=== PATIENT | male | born 1985 | race Caucasian/White ===

== ENCOUNTER 2018-07-13 15:27 | Observation (INO) | payer MEDICAID, OTHER ==
[2018-07-13] VITALS (7 sets, daily range): BP systolic 105–127; BP diastolic 67–94
[~2018-07-13] VITALS: Ht 182.9 cm; Wt 75.3 kg
[~2018-07-13 15:27] MED LIST: NAPR-243 PO; PRM25T PO; SULF1TAB38 PO; TRM50T PO
--- OUTSIDE RECORDS SUMMARY | 2018-07-13 15:32 | XMS REPORT ---
Author Author CANDACE TUCKER [facility] Address [address] [place] [address] Care Team Providers Care Cook Helper Meat Name Role Phone CANDACE TUCKER Unavailable PROBLEMS Unknown Problems ALLERGIES No Information ENCOUNTERS Encounter Location Date Diagnosis [facility] [address] [facility] [id number] [address] Jun, [facility] [address] [facility] [id number] [place] [address] Jun, IMMUNIZATIONS No Known Immunizations SOCIAL HISTORY Never Assessed REASON FOR VISIT Requests return call PLAN OF CARE VITAL SIGNS MEDICATIONS Unknown Medications RESULTS No Results PROCEDURES No Known procedures INSTRUCTIONS MEDICATIONS ADMINISTERED No Known Medications
--- NOTE | 2018-07-13 15:44 | ED Abdominal Pain ---
General Chief Complaint: Abdominal/GI Problems Stated Complaint: ABD PAIN Nursing Triage Note: PATIENT HERE WITH COMPLAINTS OF ABDOMINAL PAIN. Sepsis Screen: No Definite Risk Source of Information: Patient Exam Limitations: No Limitations History of Present Illness Date Seen by Provider: Jul 13, 2018 Time Seen by Provider: 15:42 Initial Comments To ER with reports of midline upper abdominal pain and he first noticed upon awakening this morning. It was mild at first and has progressed throughout the day. No nausea or vomiting. No fevers or chills. No diarrhea or constipation, only pain. He does state that he drinks alcohol about every other day on a regular basis and on those days he drinks anywhere from 6-10 beers. He did drink last night. The pain has begun to radiate to the left shoulder. Timing/Duration: 12-24 Hours Severity/Quality: Severe Location: Epigastric Radiation: No Radiation Activities at Onset: None Associated Symptoms: No Back Pain, No Fever/Chills, No Nausea/Vomiting Allergies and Home Medications Allergies Coded Allergies: No Known Drug Allergies (Unverified , 03/13/11) Home Medications Naproxen 500 Mg Tablet, 1 EACH PO TID PRN FOR PAIN Prescribed by: TYLER LIM on 09/24/11904 Tramadol Hcl 50 Mg Tab, 50 MG PO Q4-6HOURS PRN FOR PAIN Prescribed by: TYLER LIM on 09/24/11904 Patient Home Medication List Home Medication List Reviewed: Yes Review of Systems Review of Systems Constitutional: see HPI; No chills, No dizziness, No fever EENTM: No Symptoms Reported Respiratory: No Symptoms Reported Cardiovascular: See HPI Gastrointestinal: See HPI, Abdominal Pain; Denies Constipated, Denies Diarrhea , Denies Nausea, Denies Vomiting Genitourinary: No Symptoms Reported Musculoskeletal: no symptoms reported Skin: no symptoms reported Psychiatric/Neurological: No Symptoms Reported Endocrine: No Symptoms Reported Past Coavebe-Cskbfi-Eoxkgg Hx Patient Social History Recent Foreign Travel: No Contact w/Someone Who Travel: No Recent Infectious Disease Expo: No Physical Exam Vital Signs Vital Signs - First Documented 07/13/18 15:35 Temp 97.8 Pulse 53 Resp 20 B/P (MAP) 181/121 (141) Pulse Ox 100 Capillary Refill : Less Than 3 Seconds Height/Weight/BMI Height: 6'0" Weight: 160lbs. 0oz. 72.349893wf; BMI Method:Stated General Appearance: WD/WN, no apparent distress HEENT: PERRL/EOMI, normal ENT inspection Neck: non-tender, full range of motion Respiratory: normal breath sounds, no respiratory distress, no accessory muscle use Cardiovascular: no murmur, bradycardia Gastrointestinal: normal bowel sounds, soft, tenderness, other (there is no abdominal ecchymosis or abrasions to suggest injury) Extremities: normal range of motion, non-tender Neurologic/Psychiatric: alert, normal mood/affect, oriented x 3 Skin: normal color, warm/dry Progress/Results/Core Measures Results/Orders Lab Results Laboratory Tests Test 07/13/18 15:45 07/13/18 15:50 Range/Units White Blood Count 11.3 H 4.3-11.0 10^3/uL Red Blood Count 4.48 4.35-5.85 10^6/uL Hemoglobin 13.9 13.3-17.7 G/DL Hematocrit 40 40-54 % Mean Corpuscular Volume 89 80-99 FL Mean Corpuscular Hemoglobin 31 25-34 PG Mean Corpuscular Hemoglobin Concent 35 32-36 G/DL Red Cell Distribution Width 12.7 10.0-14.5 % Platelet Count 252 130-400 10^3/uL Mean Platelet Volume 12.4 H 7.4-10.4 FL Neutrophils (%) (Auto) 70 42-75 % Lymphocytes (%) (Auto) 20 12-44 % Monocytes (%) (Auto) 8 0-12 % Eosinophils (%) (Auto) 1 0-10 % Basophils (%) (Auto) 1 0-10 % Neutrophils # (Auto) 8.0 H 1.8-7.8 X 10^3 Lymphocytes # (Auto) 2.3 1.0-4.0 X 10^3 Monocytes # (Auto) 0.9 0.0-1.0 X 10^3 Eosinophils # (Auto) 0.1 0.0-0.3 10^3/uL Basophils # (Auto) 0.1 0.0-0.1 10^3/uL Prothrombin Time 13.3 12.2-14.7 SEC INR Comment 1.0 0.8-1.4 Activated Partial Thromboplast Time 25 24-35 SEC Sodium Level 141 135-145 MMOL/L Potassium Level 3.6 3.6-5.0 MMOL/L Chloride Level 103 98-107 MMOL/L Carbon Dioxide Level 24 21-32 MMOL/L Anion Gap 14 5-14 MMOL/L Blood Urea Nitrogen 10 7-18 MG/DL Creatinine 1.03 0.60-1.30 MG/DL Estimat Glomerular Filtration Rate > 60 BUN/Creatinine Ratio 10 Glucose Level 124 H 70-105 MG/DL Calcium Level 9.3 8.5-10.1 MG/DL Corrected Calcium 8.9 8.5-10.1 MG/DL Total Bilirubin 0.6 0.1-1.0 MG/DL Aspartate Amino Transf (AST/SGOT) 30 5-34 U/L Alanine Aminotransferase (ALT/SGPT) 26 0-55 U/L Alkaline Phosphatase 68 40-136 U/L Total Protein 7.2 6.4-8.2 GM/DL Albumin 4.5 3.2-4.5 GM/DL Amylase Level 47 25-125 U/L Lipase 13 8-78 U/L Serum Alcohol 51 H <10 MG/DL Monoscreen NEGATIVE NEGATIVE Urine Color YELLOW Urine Clarity CLEAR Urine pH 5 5-9 Urine Specific Fenton 1.025 H 1.016-1.022 Urine Protein NEGATIVE NEGATIVE Urine Glucose (UA) NEGATIVE NEGATIVE Urine Ketones NEGATIVE NEGATIVE Urine Nitrite NEGATIVE NEGATIVE Urine Bilirubin NEGATIVE NEGATIVE Urine Urobilinogen NORMAL NORMAL MG/DL Urine Leukocyte Esterase NEGATIVE NEGATIVE Urine RBC (Auto) NEGATIVE NEGATIVE Urine RBC NONE /HPF Urine WBC 0-2 /HPF Urine Crystals NONE /LPF Urine Bacteria NEGATIVE /HPF Urine Casts NONE /LPF Urine Mucus SMALL H /LPF Urine Culture Indicated NO Urine Opiates Screen NEGATIVE NEGATIVE Urine Oxycodone Screen NEGATIVE NEGATIVE Urine Methadone Screen NEGATIVE NEGATIVE Urine Propoxyphene Screen NEGATIVE NEGATIVE Urine Barbiturates Screen NEGATIVE NEGATIVE Ur Tricyclic Antidepressants Screen NEGATIVE NEGATIVE Urine Phencyclidine Screen NEGATIVE NEGATIVE Urine Amphetamines Screen NEGATIVE NEGATIVE Urine Methamphetamines Screen NEGATIVE NEGATIVE Urine Benzodiazepines Screen NEGATIVE NEGATIVE Urine Cocaine Screen NEGATIVE NEGATIVE Urine Cannabinoids Screen POSITIVE H NEGATIVE My Orders Orders - LISA CORONADO APRN Lipase (07/13/18 15:41) Amylase (07/13/18 15:41) Alcohol (07/13/18 15:41) Ua Culture If Indicated (07/13/18 15:41) Iv Heplock-Insert (Order) (07/13/18 15:41) Drug Screen Stat (Urine) (07/13/18 15:41) Cbc With Automated Diff (07/13/18 15:41) Comprehensive Metabolic Panel (07/13/18 15:41) Ct Abdomen/Pelvis W (07/13/18 15:41) Fentanyl Injection (Sublimaze Injection (07/13/18 15:45) Lactated Ringers (Lr 1000 Ml Iv Solution (07/13/18 15:45) Iohexol Injection (Omnipaque 350 Mg/Ml 1 (07/13/18 16:00) Sodium Chloride Flush (Catheter Flush Sy (07/13/18 16:00) Ns (Ivpb) (Sodium Chloride 0.9%) (07/13/18 16:00) Pharmacy Communication (Pharmacy Communi (07/13/18 15:52) Monotest (07/13/18 16:22) Hydralazine Injection (Apresoline Inject (07/13/18 16:30) Medications Given in ED Current Medications Medications Dose Ordered Sig/Seth Route Start Time Stop Time Status Last Admin Dose Admin Fentanyl Citrate 75 mcg ONCE ONCE IVP 07/13/18 15:45 07/13/18 15:46 DC 07/13/18 16:01 75 MCG Iohexol 100 ml ONCE ONCE IV 07/13/18 16:00 07/13/18 16:01 DC 07/13/18 16:13 100 ML Sodium Chloride 10 ml NEEDED PRN IV 07/13/18 16:00 07/13/18 16:13 10 ML Sodium Chloride 250 ml ONCE ONCE IV 07/13/18 16:00 07/13/18 16:01 DC 07/13/18 16:13 80 ML Vital Signs/I&O 07/13/18 15:35 Temp 97.8 Pulse 53 Resp 20 B/P (MAP) 181/121 (141) Pulse Ox 100 Blood Pressure Mean: 141 Departure Communication (Admissions) Time/Spoke to Admitting Phy: 16:32 [id number] spoke with Dr. Layton on-call for surgery. We will admit the patient here, observation, repeat labs in the morning, serial vital signs, repeat CT scan in the morning with contrast. Patient adamantly denies any history of injury or trauma, assault or falls. There is no bruising or abrasions to the abdomen or torso to suggest injury. Fentanyl did help with this pain. He is not hypotensive and his hemoglobin is stable. Due to the patient's alcohol use frequently we will place him on CIWA protocol in case he starts to detox. Consult medicine for this reason. Time/Spoke to Consulting Phy: 16:[address] Marie, she agrees to consult, would like CIWA protocol. Impression Primary Impression: Splenic laceration Qualified Codes: S36.039A - Unspecified laceration of spleen, initial encounter Additional Impression: Hemoperitoneum Disposition: ADMITTED INPATIENT Condition: Stable Admissions Decision to Admit Reason: Admit from ER (General) Decision to Admit/Date: Jul 13, 2018 Time/Decision to Admit Time: 16:33 Departure-Patient Inst. Referrals: NO,LOCAL PHYSICIAN (PCP/Family) Primary Care Physician LISA CORONADO APRN Jul 13, 2018 15:44
[2018-07-13] MEDS ORDERED: fentaNYL INJECTION 100 MCG/2 ML AMP IVP ONE (15:45)
[2018-07-13] MEDS ORDERED: LACTATED RINGERS 1,000 ML IV SCH (15:45)
[2018-07-13 15:52] LABS: BASOPHILS # (AUTO) 0.1 10^3/uL (0.0-0.1); BASOPHILS % (AUTO) 1 % (0-10); EOSINOPHILS # (AUTO) 0.1 10^3/uL (0.0-0.3); EOSINOPHILS % (AUTO) 1 % (0-10); HEMATOCRIT 40 % (40-54); HEMOGLOBIN 13.9 G/DL (13.3-17.7); LYMPHOCYTES # (AUTO) 2.3 X 10^3 (1.0-4.0); LYMPHOCYTES % (AUTO) 20 % (12-44); MEAN CORPUSCULAR HEMOGLOBIN 31 PG (25-34); MEAN CORPUSCULAR HGB CONC 35 G/DL (32-36); MEAN CORPUSCULAR VOLUME 89 FL (80-99); MEAN PLATELET VOLUME 12.4 FL (7.4-10.4); MONOCYTES # (AUTO) 0.9 X 10^3 (0.0-1.0); MONOCYTES % (AUTO) 8 % (0-12); NEUTROPHILS % (AUTO) 70 % (42-75); PLATELET COUNT 252 10^3/uL (130-400); RED BLOOD COUNT 4.48 10^6/uL (4.35-5.85); RED CELL DISTRIBUTION WIDTH 12.7 % (10.0-14.5); WHITE BLOOD COUNT 11.3 10^3/uL (4.3-11.0)
[2018-07-13] MEDS ORDERED: IOHEXOL 350 MG/ML 100 ML (OMNIPAQUE 350) VIAL IV ONE (16:00)
[2018-07-13] MEDS ORDERED: CATHETER FLUSH 10 ML SYR IV PRN ×2 (16:00→20:15)
[2018-07-13] MEDS ORDERED: NS 250 ML (IVPB) BAG IV ONE (16:00)
[2018-07-13 16:01] LABS: BILIRUBIN,URINE NEGATIVE (NEGATIVE); CLARITY,URINE CLEAR; COLOR,URINE YELLOW; GLUCOSE, URINE (UA) NEGATIVE (NEGATIVE); KETONES,URINE NEGATIVE (NEGATIVE); LEUKOCYTE ESTERASE ,URINE NEGATIVE (NEGATIVE); NITRITE,URINE NEGATIVE (NEGATIVE); PH,URINE 5 (5-9); PROTEIN,URINE NEGATIVE (NEGATIVE); UROBILINOGEN,URINE NORMAL (NORMAL)
[2018-07-13 16:11] LABS: BACTERIA,URINE NEGATIVE /HPF; WBC,URINE 0-2 /HPF
[2018-07-13 16:12] LABS: ALANINE AMINOTRANSFERASE 26 U/L (0-55); ALBUMIN 4.5 GM/DL (3.2-4.5); ALKALINE PHOSPHATASE 68 U/L (40-136); AMYLASE 47 U/L (25-125); BILIRUBIN,TOTAL 0.6 MG/DL (0.1-1.0); BUN/CREATININE RATIO 10; CALCIUM 9.3 MG/DL (8.5-10.1); CARBON DIOXIDE 24 MMOL/L (21-32); CHLORIDE 103 MMOL/L (98-107); CREATININE SERUM 1.03 MG/DL (0.60-1.30); GFR ESTIMATED > 60; GLUCOSE 124 MG/DL (70-105); LIPASE 13 U/L (8-78); POTASSIUM 3.6 MMOL/L (3.6-5.0); SODIUM 141 MMOL/L (135-145); TOTAL PROTEIN 7.2 GM/DL (6.4-8.2)
[2018-07-13 16:23] LABS: AMPHETAMINE SCREEN, URINE NEGATIVE (NEGATIVE); BARBITURATE SCREEN URINE NEGATIVE (NEGATIVE); BENZODIAZEPINES SCREEN URINE NEGATIVE (NEGATIVE); CANNABINOID SCREEN, URINE POSITIVE (NEGATIVE); COCAINE SCREEN URINE NEGATIVE (NEGATIVE); METHADONE STAT NEGATIVE (NEGATIVE); METHAMPHETAMINE SCREEN URINE S NEGATIVE (NEGATIVE); OPIATE SCREEN URINE NEGATIVE (NEGATIVE); OXYCODONE STAT NEGATIVE (NEGATIVE); PROPOXYPHENE STAT NEGATIVE (NEGATIVE); TRICYCLIC ANTIDEPRESSANTS SCRE NEGATIVE (NEGATIVE)
[2018-07-13] MEDS ORDERED: hydrALAZINE (APESOLINE) 20 MG/ML VIAL IV ONE (16:30)
--- NOTE | 2018-07-13 16:38 | Diagnostic Imaging Report ---
PROCEDURE: CT abdomen and pelvis with contrast. TECHNIQUE: Multiple contiguous axial images were obtained through the abdomen and pelvis after administration of intravenous contrast. INDICATION: Abdominal pain greatest left. I have no priors. FINDINGS: There is abnormal appearance of the spleen at its posterior medial aspect which could reflect contusion and laceration. There is a suggestion of a pseudoaneurysm within that structure posteriorly measuring 4.7 mm in both as hyperdensity on the arterial phase and of density just slightly greater than the liver parenchyma on the delayed images. There is a small amount of perisplenic fluid as well as free fluid peripheral to the liver and along the left greater than right colic gutters and the pelvis is moderate free fluid. I cannot identify a lower rib fracture and no basilar pleural fluid or pneumothorax. Kidneys, adrenals and pancreas were normal. The liver parenchyma itself appeared unremarkable. Some free fluid along the mesentery adjacent to left upper quadrant small bowel tracking along the mesenteric root. There is no free air or pneumatosis. Extrasplenic extravasation of vascular contrast media. The urinary bladder is intact. Unobstructed kidneys appeared well-perfused. The osseous structures unremarkable. IMPRESSION: The findings are most consistent with a splenic laceration with intraparenchymal pseudoaneurysm but no active extraparenchymal extravasation. Abdominal pelvic free fluid is suspect for hemoperitoneum. No fracture or other suspected traumatic sequelae identified. Results discussed by phone with the ER physician. Dictated by: Dictated on workstation # [id number]
[2018-07-13] MEDS ORDERED: fentaNYL INJECTION 100 MCG/2 ML AMP ONE (18:50)
[2018-07-13 19:00] LABS: PROTHROMBIN TIME PATIENT 13.3 SEC (12.2-14.7)
[2018-07-13] MEDS ORDERED: 1/2 NS IV SOLUTION 1,000 ML IV PRN (20:09)
[2018-07-13] MEDS ORDERED: LORazepam INJ 2 MG/ML (ATIVAN) VIAL IM/IV PRN (20:15)
[2018-07-13] MEDS ORDERED: LORazepam INJ 2 MG/ML (ATIVAN) VIAL IV PRN (20:15)
[2018-07-13] MEDS ORDERED: SENNA W/DOCUSATE (SENOKOT S) TABLET PO PRN (20:15)
[2018-07-13] MEDS ORDERED: ANTACID SUSP 30 ML UDC (MYLANTA) PO PRN (20:15)
[2018-07-13] MEDS ORDERED: ONDANSETRON 4 MG (ZOFRAN) ORAL DISSOLVE TAB SL PRN (20:15)
[2018-07-13] MEDS ORDERED: D5 1/2 NS 1000 ML IV SOLUTION 1,000 ML IV PRN (20:15)
[2018-07-13] MEDS ORDERED: ONDANSETRON 4 MG/2 ML (SDV) Z0FRAN IV PRN ×2 (20:15)
[2018-07-13] MEDS ORDERED: LORazepam 1 MG (ATIVAN) TAB PO PRN (20:15)
[2018-07-13] MEDS: fentaNYL INJECTION 100 MCG/2 ML AMP IVP PRN ×2 (20:18→23:39)
[2018-07-13] MEDS: CATHETER FLUSH 10 ML SYR IV SCH (23:20)
[2018-07-13] MEDS: D5 1/2 NS W/KCL 20 MEQ/L 1,000 ML IV SCH (23:41)
[2018-07-14] VITALS (16 sets, daily range): BP systolic 112–147; BP diastolic 64–98
[2018-07-14 03:47] LABS: BASOPHILS % (AUTO) 0 % (0-10); EOSINOPHILS # (AUTO) 0.1 10^3/uL (0.0-0.3); EOSINOPHILS % (AUTO) 1 % (0-10); HEMATOCRIT 36 % (40-54); HEMOGLOBIN 12.2 G/DL (13.3-17.7); LYMPHOCYTES # (AUTO) 1.5 X 10^3 (1.0-4.0); LYMPHOCYTES % (AUTO) 14 % (12-44); MEAN CORPUSCULAR HEMOGLOBIN 31 PG (25-34); MEAN CORPUSCULAR HGB CONC 34 G/DL (32-36); MEAN CORPUSCULAR VOLUME 91 FL (80-99); MEAN PLATELET VOLUME 12.8 FL (7.4-10.4); MONOCYTES # (AUTO) 0.9 X 10^3 (0.0-1.0); MONOCYTES % (AUTO) 8 % (0-12); NEUTROPHILS # (AUTO) 8.2 X 10^3 (1.8-7.8); NEUTROPHILS % (AUTO) 77 % (42-75); PLATELET COUNT 181 10^3/uL (130-400); RED BLOOD COUNT 3.99 10^6/uL (4.35-5.85); RED CELL DISTRIBUTION WIDTH 12.8 % (10.0-14.5); WHITE BLOOD COUNT 10.7 10^3/uL (4.3-11.0)
[2018-07-14 04:09] LABS: ALANINE AMINOTRANSFERASE 22 U/L (0-55); ALKALINE PHOSPHATASE 59 U/L (40-136); BILIRUBIN,TOTAL 0.8 MG/DL (0.1-1.0); BUN/CREATININE RATIO 10; CALCIUM 8.9 MG/DL (8.5-10.1); CARBON DIOXIDE 24 MMOL/L (21-32); CHLORIDE 102 MMOL/L (98-107); CREATININE SERUM 0.82 MG/DL (0.60-1.30); GFR ESTIMATED > 60; GLUCOSE 119 MG/DL (70-105); MAGNESIUM 2.2 MG/DL (1.8-2.4); PHOSPHORUS 3.3 MG/DL (2.3-4.7); POTASSIUM 4.1 MMOL/L (3.6-5.0); SODIUM 135 MMOL/L (135-145); TOTAL PROTEIN 6.1 GM/DL (6.4-8.2)
[2018-07-14] MEDS: D5 1/2 NS W/KCL 20 MEQ/L 1,000 ML IV SCH ×4 (04:59→19:45)
[2018-07-14] MEDS: CATHETER FLUSH 10 ML SYR IV SCH ×3 (06:03→19:43)
[2018-07-14] MEDS ORDERED: FLU QUADRIvalent (5+ YOA) 2018-2019 (AFLURIA) 0.5 ML IM ONE (07:30)
[2018-07-14] MEDS: fentaNYL INJECTION 100 MCG/2 ML AMP IVP PRN (07:36)
--- NOTE | 2018-07-14 08:05 | Diagnostic Imaging Report ---
INDICATION: Splenic laceration, followup, dyspnea. TECHNIQUE: Single frontal view of the chest. COMPARISON: 09/13/2010 FINDINGS: Lung volumes are normal. No focal consolidation is seen. There is no pleural effusion or pneumothorax. The cardiac silhouette is normal in size. IMPRESSION: No acute pulmonary abnormality seen. Dictated by: Dictated on workstation # [id number]
[2018-07-14] MEDS: THIAMINE INJECTION 100 MG, FOLIC ACID INJECTION 1 MG, MAGNESIUM SULFATE 2 GM, VITAMIN M... IV SCH ×15 (08:06→10:02)
[2018-07-14] MEDS ORDERED: IOHEXOL 350 MG/ML 100 ML (OMNIPAQUE 350) VIAL IV ONE (10:15)
[2018-07-14] MEDS ORDERED: NS 250 ML (IVPB) BAG IV ONE (10:15)
--- NOTE | 2018-07-14 10:55 | Diagnostic Imaging Report ---
PROCEDURE: CT abdomen and pelvis with contrast. TECHNIQUE: Multiple contiguous axial images were obtained through the abdomen and pelvis after administration of intravenous contrast. INDICATION: Splenic laceration, followup. COMPARISON: Correlation is made with the recent CT performed one day earlier. FINDINGS: The lung bases are clear. No focal liver laceration is seen. There is some perihepatic fluid, similar to perhaps slightly increased when compared with yesterday. The area of hyperenhancement involving the inferior aspect of the spleen is no longer visualized. The amount of perisplenic fluid appears similar to the prior exam. The amount of fluid in the right and left paracolic gutters does appear to be mild to moderately increased since yesterday. There is moderate free pelvic fluid present as well, similar to perhaps slightly greater when compared with yesterday. The findings are consistent with hemoperitoneum. No active arterial extravasation is seen. The bowel loops are unremarkable. The pancreas, adrenal glands, and kidneys are unremarkable. The aorta is unremarkable. The bladder is unremarkable. IMPRESSION: Splenic laceration/contusion. The area of hyperenhancement in the inferior aspect of the spleen is not appreciated on today's study. The perisplenic hematoma appears stable. There has been some increase in the amount of perihepatic fluid as well as the fluid in the paracolic gutters and within the pelvis, consistent with some increased amount of hemoperitoneum; however, no active contrast extravasation is identified. Dictated by: Dictated on workstation # [id number]
--- NOTE | 2018-07-14 12:51 | Consultation-Hospitalist ---
HPI History of Present Illness: HPI/Chief Complaint The patient is a 33-year-old white male who presented to the emergency room yesterday with complaints of abdominal pain. This apparently had been there earlier in the day and got progressively worse. On workup he was found to have an apparent splenic laceration and hemoperitoneum. He is unable to give any history of injury. He also gives a history of rather substantial were drinking on an every other day sort of basis. Exam Limitations: clinical condition Date Seen 07/14/18 Attending Physician Blake Layton MD PCP No,Local Physician Referring Physician Date of Admission Jul 13, 2018 at 16:34 Home Medications & Allergies Home Medications Reviewed patient Home Medication Reconciliation performed by pharmacy medication reconciliations sterilization technician and/or nursing. Patients Allergies have been reviewed. Allergies Allergies Coded Allergies No Known Drug Allergies (Unverified03/13/11) Past Ydkmjlp-Jflpfo-Yrbanv Hx Past Med/Social Hx: Reviewed Nursing Past Med/Soc Hx Patient Social History Alcohol Use: Regular Use Number of Drinks Today: AA Alcohol Beverage of Choice: Beer Recreational Drug Use: No Smoking Status: Never a Smoker Type Used: Smokeless Tobacco 2nd Hand Smoke Exposure: No Physical Abuse Screen: No Sexual Abuse: No Recent Foreign Travel: No Contact w/other who traveled: No Recent Infectious Disease Expo: No Review of Systems Constitutional: see HPI EENTM: no symptoms reported Respiratory: no symptoms reported Cardiovascular: no symptoms reported Gastrointestinal: LUQ (pain), abdominal pain Genitourinary: no symptoms reported Musculoskeletal: no symptoms reported Skin: no symptoms reported Psychiatric/Neurological: No Symptoms Reported Physical Exam Physical Exam Vital Signs Vital Signs - First Documented 07/13/18 07/13/18 15:35 17:30 Temp 97.8 Pulse 53 Resp 20 B/P (MAP) 181/121 (141) Pulse Ox 100 O2 Delivery Room Air Capillary Refill : Less Than 3 Seconds Height, Weight, BMI Height: 6'0.00" Weight: 162lbs. 0.0oz. 73.722642ew; 21.7 BMI Method:Stated General Appearance: Mild Distress Eyes: Bilateral Eye Normal Inspection HEENT: Normal ENT Inspection Neck: Normal Inspection Respiratory: Chest Non Tender, Lungs Clear, Normal Breath Sounds, No Accessory Muscle Use, No Respiratory Distress Cardiovascular: Regular Rate, Rhythm, No Edema, No Gallop, No JVD, No Murmur, Normal Peripheral Pulses Gastrointestinal: Normal Bowel Sounds, No Organomegaly, No Pulsatile Mass, Soft , Tenderness (to palpation left upper quadrant) Back: Normal Inspection Neurologic/Psychiatric: Alert, Oriented x3, No Motor/Sensory Deficits, Normal Mood/Affect Skin: Normal Color, Warm/Dry Lymphatic: No Adenopathy Results Results/Procedures Labs Laboratory Tests 07/13/18 15:45 07/14/18 03:26 Patient resulted labs reviewed. Assessment/Plan Assessment and Plan Assess & Plan/Chief Complaint Apparent splenic laceration without reported trauma. History of significant alcohol ingestion on an every other day basis. Plan: Ativan may be useful if he shows any evidence of twitchiness. Will follow with you. Clinical Quality Measures DVT/VTE Risk/Contraindication: RFS Level Per Nursing on Admit: 1=Low/No VTE PPX JF BOWMAN MD Jul 14, 2018 12:51
--- NOTE | 2018-07-14 17:06 | HISTORY AND PHYSICAL ---
DATE OF SERVICE: The patient was seen at 0900 on 07/14/2018. HISTORY OF PRESENT ILLNESS: The patient is a 33-year-old male who presented to the Emergency Department by private vehicle due to abdominal pain. He reports that he had developed some mild discomfort in the left upper abdominal quadrant, which he felt was related to hunger pains. He then reports that over the duration of the day, the pain worsened. He presented to the Emergency Department where a CT scan was performed, which did show a splenic capsular tear, which was consistent with a grade II laceration. There was no active bleeding identified. There was a very small amount of fluid within the peritoneal cavity. The patient was otherwise hemodynamically stable, awake and alert. Upon further questioning, he reports he does drink alcohol almost on a daily basis and drinks approximately 6 to 8 beers daily. He states that the night before he again had about 6 to 8 beers; however, he went to sleep much earlier at around 8 p.m. and once he woke up the following day around 7 a.m., he went about his normal activities and again later that day he developed the abdominal pain. He reports no falls, no trauma in the household. 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 He also does not report any history of any blood dyscrasias or bleeding disorders. His Val coma scale upon admission was 15. A repeat CT scan was performed, which did show a slight amount of increased fluid; however, again, no active bleeding identified. He is again hemodynamically stable, awake and alert. He also does not have any abdominal pain. PAST MEDICAL HISTORY: None. PAST SURGICAL HISTORY: None. ALLERGIES: No known drug allergies. MEDICATIONS: None. SOCIAL HISTORY: Negative smoking. Positive alcohol. Does drink 6 to 8 beers on a daily basis. FAMILY HISTORY: Noncontributory. VITAL SIGNS: Temperature 97.2, blood pressure 144/98, pulse 72, respirations 20 and pulse ox 99% on room air. REVIEW OF SYSTEMS: A well-nourished male in no acute distress. He is not experiencing any shortness of breath or difficulty breathing. No chest pain, palpitations, diaphoresis. No nausea, vomiting. No diarrhea, constipation. No red blood per rectum, no dark tarry stools. No fever, chills. No recent inadvertent weight loss. All other review of systems negative. PHYSICAL EXAMINATION: CHEST: Clear. Good breath sounds bilaterally. HEART: Regular, no murmurs. EXTREMITIES: No lower extremity edema, negative Homans sign. HEENT: No scleral icterus. NECK: No cervical lymphadenopathy. ABDOMEN: Soft, nondistended. There is mild discomfort in the left upper abdominal quadrant. No peritoneal signs. NEUROLOGIC: Awake and alert. Val coma scale 15. LABORATORY DATA: Hemoglobin 12.2, hematocrit 36, WBC 10.7, platelets 181. ASSESSMENT AND PLAN: A 33-year-old male with a grade II splenic laceration. There is no evidence of continued bleed or active bleed based on physical examination, laboratory work as well as repeat CT scan. We will continue with conservative management, start a regular diet and have him ambulate and proceed with deep vein thrombosis prophylaxis. We will get another set of labs tomorrow morning and if this is within normal limits, we will discharge him home; however, recommend no heavy lifting or exertion for the next two weeks. Job ID: [id number] DocumentID: [id number] Dictated Date: 07/14/2018 16:32:09 Field Identification Specialist Date: 07/14/2018 17:05:24 Dictated By: KARELY HERNANDEZ MD
[2018-07-15 00:25] VITALS: BP 144/67
[2018-07-15] MEDS: HYDROcodone/APAP 7.5 MG/325 MG (LORTAB, LORCET PLUS) TABLET PO PRN ×2 (02:45→09:36)
[2018-07-15] MEDS: D5 1/2 NS W/KCL 20 MEQ/L 1,000 ML IV SCH ×2 (02:45→09:39)
[2018-07-15] MEDS: CATHETER FLUSH 10 ML SYR IV SCH (03:38)
[2018-07-15 04:03] VITALS: BP 115/64
[2018-07-15 06:32] LABS: BASOPHILS # (AUTO) 0.1 10^3/uL (0.0-0.1); BASOPHILS % (AUTO) 1 % (0-10); EOSINOPHILS # (AUTO) 0.2 10^3/uL (0.0-0.3); EOSINOPHILS % (AUTO) 3 % (0-10); HEMATOCRIT 34 % (40-54); HEMOGLOBIN 11.9 G/DL (13.3-17.7); LYMPHOCYTES # (AUTO) 1.5 X 10^3 (1.0-4.0); LYMPHOCYTES % (AUTO) 21 % (12-44); MEAN CORPUSCULAR HEMOGLOBIN 31 PG (25-34); MEAN CORPUSCULAR HGB CONC 35 G/DL (32-36); MEAN CORPUSCULAR VOLUME 90 FL (80-99); MEAN PLATELET VOLUME 12.4 FL (7.4-10.4); MONOCYTES # (AUTO) 0.7 X 10^3 (0.0-1.0); MONOCYTES % (AUTO) 9 % (0-12); NEUTROPHILS # (AUTO) 4.8 X 10^3 (1.8-7.8); NEUTROPHILS % (AUTO) 66 % (42-75); PLATELET COUNT 182 10^3/uL (130-400); RED CELL DISTRIBUTION WIDTH 12.7 % (10.0-14.5); WHITE BLOOD COUNT 7.3 10^3/uL (4.3-11.0)
[2018-07-15 07:31] VITALS: BP 117/67
[2018-07-15 12:21] VITALS: BP 131/82
--- NOTE | 2018-07-15 12:59 | Discharge Inst-Surgical ---
D/C Lap Instructions-DAVID Follow Up Appt in 2 weeks Activity as tolerated Incentive Spirometry use every 2 hours while awake Regular Diet Symptoms to Report: Fever over 101 degree F, Nausea/Vomiting Infection Signs and Symptoms to report: Increased abdominal pain Bathing instructions: May shower If any problems/questions: Contact your physician or go to Emergency Room KARELY HERNANDEZ MD Jul 15, 2018 12:59
--- NOTE | 2018-07-15 14:39 | Progress Note (SOAP) ---
Subjective Date Seen by a Provider: Jul 15, 2018 Time Seen by a Provider: 14:00 Subjective/Events-last exam doing well. no abd pain. Hb stable. Objective Exam Vital Signs Date Time Temp Pulse Resp B/P (MAP) Pulse Ox O2 Delivery O2 Flow Rate FiO2 07/15/18 12:21 98.0 79 14 131/82 (98) 98 Room Air 07/15/18 07:31 97.7 59 17 117/67 (84) 93 Room Air 07/15/18 04:03 98.6 67 18 115/64 (81) 97 Room Air 07/15/18 00:25 98.5 74 17 144/67 (92) 96 Room Air 07/14/18 20:40 98.8 91 20 144/67 (92) 98 Room Air 07/14/18 16:19 99.6 80 20 141/79 (99) 99 Room Air I & O 07/15/18 07:00 Intake Total 2134 ml Output Total 1900 ml Balance 234 ml Capillary Refill : Less Than 3 Seconds General Appearance: No Apparent Distress HEENT: PERRL/EOMI Neck: Full Range of Motion Respiratory: Chest Non Tender, Lungs Clear, Normal Breath Sounds Cardiovascular: Regular Rate, Rhythm Gastrointestinal: normal bowel sounds, non tender, soft Extremity: Normal Capillary Refill Neurologic/Psychiatric: Alert, Oriented x3 Skin: Normal Color Lymphatic: No Adenopathy Results Lab Laboratory Tests 07/15/18 06:10: White Blood Count 7.3, Red Blood Count 3.80L, Hemoglobin 11.9L, Hematocrit 34L, Mean Corpuscular Volume 90, Mean Corpuscular Hemoglobin 31, Mean Corpuscular Hemoglobin Concent 35, Red Cell Distribution Width 12.7, Platelet Count 182, Mean Platelet Volume 12.4H, Neutrophils (%) (Auto) 66, Lymphocytes (%) (Auto) 21 , Monocytes (%) (Auto) 9, Eosinophils (%) (Auto) 3, Basophils (%) (Auto) 1, Neutrophils # (Auto) 4.8, Lymphocytes # (Auto) 1.5, Monocytes # (Auto) 0.7, Eosinophils # (Auto) 0.2, Basophils # (Auto) 0.1 Microbiology 07/13/18 MRSA Screen - Final, Complete MRSA not isolated Assessment/Plan Assessment/Plan Assess & Plan/Chief Complaint grade 2 splenic laceration. responded well to medical management and splenic salvage therapy. no heavy lifting and exertion for next two weeks. Clinical Quality Measures DVT/VTE Risk/Contraindication: RFS Level Per Nursing on Admit: 1=Low/No VTE PPX KARELY HERNANDEZ MD Jul 15, 2018 2:39 pm
--- NOTE | 2018-07-23 12:00 | Physician Query-Final Dx ---
PAULINA LR 07/23/18 1200: Final Diagnosis Give Final Diagnosis Please give Final Diagnosis KARELY HERNANDEZ MD 07/23/18 1220: Final Diagnosis Give Final Diagnosis trauma-grade 2 splenic laceration. PAULINA LR Jul 23, 2018 12:00 KARELY HERNANDEZ MD Jul 23, 2018 12:20
== END 2018-07-15 12:57 | disposition home or self-care (01) ==
LOC: EDUNIT# 15:27 → ER 15:29 → ICU 16:34 → UNDOADMOB 16:34 → ICU 17:36 → UNDOADMOB 17:36 → ICU 07-14 16:20 → 4TH 07-14 16:20 → UNDODISOB 07-15 14:20
PROVIDERS: ADMIT Surgery; ATTEND Surgery
DX: S36.039A Unspecified laceration of spleen, initial encounter (principal); K66.1 Hemoperitoneum; F17.200 Nicotine dependence, unspecified, uncomplicated; Z72.89 Other problems related to lifestyle; X58.XXXA Exposure to other specified factors, initial encounter
CPT/HCPCS: 36415; 71045; 74177; 80053; 80306; 80320; 81000; 82150; 83690; 83735; 84100; 85025; 85610; 85730; 86308; 86850; 86900; 86901; 86920; 87081; 96361; 96374; G0378

== ENCOUNTER 2019-05-21 17:19 | Emergency (ER) | payer SELFPAY ==
[~2019-05-21] VITALS: Ht 182.9 cm; Wt 83.9 kg
--- NOTE | 2019-05-21 18:10 | NUR ---
NOTIFIED OF BUSY ER AND THE PROVIDER WOULD BE IN SOON THEY COULD. WATER GIVEN TO PT PER HIS REQUEST. DENIES ANY OTHER NEEDS AT THIS TIME.
--- NOTE | 2019-05-21 18:32 | ED Lower Extremity ---
General Chief Complaint: Laceration Stated Complaint: L KNEE WOUND Nursing Triage Note: REOPENED OLD WOUND TODAY WHILE AT WORK ON LEFT KNEE. Nursing Sepsis Screen: No Definite Risk Source: patient Exam Limitations: no limitations History of Present Illness Date Seen by Provider: May 21, 2019 Time Seen by Provider: 18:29 Initial Comments To ER with a laceration to the left anterior knee. He initially injured this many years ago, has since had this granuloma/nodule to the anterior knee over the patellar tendon. He oftentimes kneels down and stands up and this will be bleeding or he'll catch it on something at work which will cause it to bleed and partially tear. Today it partially tore. Tetanus is not up-to-date. Onset: just prior to arrival Severity: moderate Pain/Injury Location: left knee Modifying Factors: Worse With Movement Allergies and Home Medications Allergies Coded Allergies: No Known Drug Allergies (Unverified , 03/13/11) Home Medications No Active Prescriptions or Reported Meds Patient Home Medication List Home Medication List Reviewed: Yes Review of Systems Constitutional: see HPI EENTM: see HPI Respiratory: no symptoms reported Cardiovascular: no symptoms reported Genitourinary: no symptoms reported Musculoskeletal: no symptoms reported Skin: no symptoms reported Past Ecssirk-Vosctp-Ecpjpm Hx Patient Social History Alcohol Use: Occasionally Uses Alcohol Beverage of Choice: Beer Recreational Drug Use: Yes Drug of Choice: POT Smoking Status: Never a Smoker Type Used: Smokeless Tobacco 2nd Hand Smoke Exposure: No Recent Foreign Travel: No Contact w/Someone Who Travel: No Recent Infectious Disease Expo: No Recent Hopitalizations: No Seasonal Allergies Seasonal Allergies: No Past Medical History Surgeries: No Respiratory: No Cardiac: Yes Hypertension Neurological: No Genitourinary: No Gastrointestinal: No Musculoskeletal: No Endocrine: No HEENT: No Cancer: No Psychosocial: No Integumentary: No Physical Exam Vital Signs Vital Signs - First Documented 05/21/19 17:26 Temp 98.1 Pulse 74 Resp 16 B/P (MAP) 161/111 (128) Pulse Ox 99 O2 Delivery Room Air Capillary Refill : Less Than 3 Seconds Height, Weight, BMI Height: 6'0.00" Weight: 185lbs. 0.0oz. 83.142621hi; 21.7 BMI Method:Stated General Appearance: WD/WN, no apparent distress Respiratory: no respiratory distress, no accessory muscle use Hips: bilateral hip non-tender, bilateral hip normal inspection, bilateral hip normal range of motion Legs: bilateral leg non-tender, bilateral leg normal inspection, bilateral leg normal range of motion Knees: left knee other (there is a 1 cm rounded nodule/granuloma to the anterior knee over the patellar tendon. The superior aspect of this has been torn. Rather than suturing this back down, it is already bothersome to him he doesn't have just removed. This is certainly reasonable. I anesthetized this with 2 mL of 1% lidocaine without epinephrine. This was removed with a 10 blade scalpel. Bleeding was minimal and easily controlled with silver nitrate.) Ankles: bilateral ankle non-tender, bilateral ankle normal inspection, bilateral ankle normal range of motion Neurologic/Psychiatric: alert, normal mood/affect, oriented x 3 Skin: normal color, warm/dry Progress/Results/Core Measures Results/Orders Vital Signs/I&O 05/21/19 17:26 Temp 98.1 Pulse 74 Resp 16 B/P (MAP) 161/111 (128) Pulse Ox 99 O2 Delivery Room Air 2 Blood Pressure Mean: 128 Departure Impression Primary Impression: Laceration of knee Qualified Codes: S81.012A - Laceration without foreign body, left knee, initial encounter Disposition: HOME, SELF-CARE Condition: Stable Departure-Patient Inst. Decision time for Depature: 18:31 Referrals: NO,LOCAL PHYSICIAN (PCP/Family) Primary Care Physician Patient Instructions: Wound Care (DC) Add. Discharge Instructions: 1. You can shower starting this evening but it will probably start oozing blood again. If it does simply rewrap it with the materials provided. Return to ER for any concerns. All discharge instructions reviewed with patient and/or family. Voiced understanding. Scripts No Active Prescriptions or Reported Meds LISA CORONADO APRN May 21, 2019 18:31
[2019-05-21 18:36] VITALS: BP 161/111
== END 2019-05-21 18:36 | disposition home or self-care (01) ==
LOC: EDUNIT# 17:19 → ER 17:21
DX: S81.012A Laceration without foreign body, left knee, initial encounter (principal); I10 Essential (primary) hypertension; X50.1XXA Overexertion from prolonged static or awkward postures, initial encounter; Y92.59 Other trade areas as the place of occurrence of the external cause; Y99.0 Civilian activity done for income or pay

== ENCOUNTER 2019-06-01 08:12 | Emergency (ER) | payer SELFPAY ==
[~2019-06-01] VITALS: Ht 182.8 cm; Wt 84.0 kg
--- NOTE | 2019-06-01 09:03 | Diagnostic Imaging Report ---
INDICATION: Bilateral knee pain. TIME OF EXAMINATION: 8:46 AM. TECHNIQUE: Multiple views of the bilateral knees were obtained. FINDINGS: The joint spaces are well maintained. The articular surfaces are smooth. No fracture, dislocation, or effusion is seen. IMPRESSION: No acute bony abnormality is identified. Dictated by: Dictated on workstation # [id number]
[2019-06-01] MEDS ORDERED: METH4TAB PO (09:10)
--- NOTE | 2019-06-01 09:11 | ED Lower Extremity ---
General Chief Complaint: Lower Extremity Stated Complaint: KNEE PAIN Nursing Triage Note: PT AMB TO RM 8 WITH COMPLAINT OF BILATERAL KNEE PAIN. STATES PAIN STARTED AFTER SWIMMING IN OCEAN THIS WEEKEND. STATES PAIN IS SAME IN BOTH KNEES. DENIES INJURY Nursing Sepsis Screen: No Definite Risk Source: patient History of Present Illness Date Seen by Provider: Jun 01, 2019 Time Seen by Provider: 08:35 Initial Comments PT ARRIVES VIA POV FROM HOME C/O BILATERAL KNEE PAIN SINCE WAKING YESTERDAY MORNING--PAIN IS ACTUALLY JUST ABOVE BOTH KNEE CAPS/DISTAL THIGH AREAS NO KNOWN INJURY, BUT PT HAS BEEN TO [facility] IN THE DAYS PRIOR---DID ALOT OF DRIVING, ALOT OF SWIMMING IN THE OCEAN--ESPECIALLY ALOT OF JUMPING, SQUATTING, AND ALOT OF WALKING NO SWELLING TO KNEES NO REDNESS OR WARMTH NO OTHER JOINT PAIN NO FEVER OR RECENT ILLNESS HAS NOT HAD ANY PROBLEMS WITH KNEES OTHER THAN ALOT OF POPPING WHEN HE BENDS KNEES. TOOK 2 IBUPROFEN YESTERDAY PCP: NONE Allergies and Home Medications Allergies Coded Allergies: No Known Drug Allergies (Unverified , 03/13/11) Home Medications Methylprednisolone 4 Mg Tab.ds.pk, 4 MG PO UD Prescribed by: TYLER LIM on 06/01/19 0910 Patient Home Medication List Home Medication List Reviewed: Yes Review of Systems Constitutional: no symptoms reported Musculoskeletal: see HPI Skin: other (HAD GRANULOMA REMOVED AND CAUTERIZED RECENTLY --JUST BELOW LEFT KNEE--NO PROBLEMS WITH IT. ) Psychiatric/Neurological: No Symptoms Reported Past Vmrbvye-Rdcblu-Ioviei Hx Patient Social History Alcohol Use: Occasionally Uses Number of Drinks Today: AA Alcohol Beverage of Choice: Beer Recreational Drug Use: Yes (THC) Drug of Choice: POT Smoking Status: Never a Smoker Type Used: Smokeless Tobacco 2nd Hand Smoke Exposure: No Recent Foreign Travel: No Contact w/Someone Who Travel: No Recent Infectious Disease Expo: No Recent Hopitalizations: No Physical Abuse: No Sexual Abuse: No Mistreated: No Fear: No Seasonal Allergies Seasonal Allergies: No Past Medical History Surgeries: No Respiratory: No Cardiac: Yes Hypertension Neurological: No Genitourinary: No Gastrointestinal: No Musculoskeletal: No Endocrine: No HEENT: No Cancer: No Psychosocial: No Integumentary: No Blood Disorders: No Physical Exam Vital Signs Vital Signs - First Documented 06/01/19 08:22 Temp 37.2 Pulse 85 Resp 16 B/P (MAP) 159/105 (123) Pulse Ox 99 O2 Delivery Room Air Capillary Refill : Less Than 3 Seconds Height, Weight, BMI Height: 6'0.00" Weight: 185lbs. 0.0oz. 83.412729wq; 25.00 BMI Method:Stated General Appearance: WD/WN, no apparent distress Legs: bilateral leg other Knees: bilateral knee other (BILATERAL KNEES WITH NORMAL APPEARANCE, NON- TENDER, NO SWELLING, NO ERYTHEMA, NO BRUISING. FULL ROM. NO CREPITANCE OR LIGAMENT LAXITY. STATES PAIN IS MOSTLY WHEN HE STANDS AND WALKS. ) Ankles: bilateral ankle other Feet: bilateral foot other Neurologic/Tendon: normal sensation, normal motor functions, normal tendon functions Progress/Results/Core Measures Results/Orders My Orders Orders - TYLER LIM DO Knee, 3 Views, Bilateral (06/01/19 08:31) Burt Bandage (06/01/19 09:08) Vital Signs/I&O 06/01/19 06/01/19 08:22 09:20 Temp 37.2 37.2 Pulse 85 85 Resp 16 16 B/P (MAP) 159/105 (123) 145/90 (123) Pulse Ox 99 99 O2 Delivery Room Air Blood Pressure Mean: 123 Diagnostic Imaging Comments BILATERAL KNEE XRAYS--NO ACUTE PROCESS, PER RADIOLOGIST REPORT AT 0907 Reviewed: Reviewed by Me Departure Impression Primary Impression: Strain of both knees Disposition: 01 HOME, SELF-CARE Condition: Stable Departure-Patient Inst. Referrals: ALYSSA OCAMPO,LOCAL PHYSICIAN (PCP) Primary Care Physician Patient Instructions: Knee Sprain (DC) Add. Discharge Instructions: BURT WRAPS TO BOTH KNEES FOR COMFORT ICE TO AREAS AT 20 MINUTE INTERVALS FOLLOW UP WITH DR. OCAMPO IN 4-5 DAYS IF NO BETTER All discharge instructions reviewed with patient and/or family. Voiced understanding. Scripts Methylprednisolone (Medrol) 4 Mg Tab.ds.pk 4 MG PO UD, #1 PKG Prov: TYLER LIM DO 06/01/19 TYLER LIM DO Jun 01, 2019 09:11
[2019-06-01 09:20] VITALS: BP 145/90
== END 2019-06-01 09:20 | disposition home or self-care (01) ==
LOC: EDUNIT# 08:12 → ER 08:13
DX: S86.911A Strain of unspecified muscle(s) and tendon(s) at lower leg level, right leg, initial encounter (principal); S86.912A Strain of unspecified muscle(s) and tendon(s) at lower leg level, left leg, initial encounter; I10 Essential (primary) hypertension; X50.1XXA Overexertion from prolonged static or awkward postures, initial encounter; Y93.11 Activity, swimming

== ENCOUNTER 2019-08-03 15:35 | Emergency (ER) | payer SELFPAY ==
[~2019-08-03] VITALS: Ht 185 cm; Wt 85.2 kg
[~2019-08-03 15:35] MED LIST changes: +METH4TAB PO
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
[2019-08-03 16:44] VITALS: BP 160/105
--- NOTE | 2019-08-03 17:40 | Diagnostic Imaging Report ---
PROCEDURE: US Scrotum. TECHNIQUE: Multiple real-time grayscale images were obtained over the scrotum in various projections bilaterally. INDICATION: Groin and testicular injury, pain and swelling. COMPARISON: None. FINDINGS: Right testicle measures 40 x 19 x 22 mm and the left testicle 40 x 22 x 30 mm. Blood flow is equal and symmetric bilaterally. The epididymides are grossly unremarkable. There is no inflammation, mass, or torsion. There is a hypoechoic structure in the left inguinal canal measuring 5 x 2 cm which could represent a hematoma. There is no organized fluid collection. The scrotal wall appears normal. IMPRESSION: 1. The testicular and scrotal structures are grossly unremarkable. No complicated hydrocele or hematoma is seen involving the testicles. 2. Suspect a left inguinal hematoma. This could be further evaluated with CT on a nonemergent basis. Dictated by: Dictated on workstation # [id number]
== END 2019-08-03 16:44 | disposition home or self-care (01) ==
LOC: EDUNIT# 15:35 → ER 15:36
DX: S30.1XXA Contusion of abdominal wall, initial encounter (principal); I10 Essential (primary) hypertension; R40.2142 Coma scale, eyes open, spontaneous, at arrival to emergency department; R40.2252 Coma scale, best verbal response, oriented, at arrival to emergency department; R40.2362 Coma scale, best motor response, obeys commands, at arrival to emergency department; V89.2XXA Person injured in unspecified motor-vehicle accident, traffic, initial encounter
CPT/HCPCS: 76870

== ENCOUNTER 2020-08-14 22:53 | Emergency (ER) | payer SELFPAY ==
[~2020-08-14] VITALS: Ht 185.4 cm; Wt 83.9 kg
[2020-08-14 23:23] LABS: BILIRUBIN,URINE NEGATIVE (NEGATIVE); CLARITY,URINE SL CLOUDY; COLOR,URINE YELLOW; GLUCOSE, URINE (UA) NEGATIVE (NEGATIVE); KETONES,URINE TRACE (NEGATIVE); LEUKOCYTE ESTERASE ,URINE NEGATIVE (NEGATIVE); NITRITE,URINE NEGATIVE (NEGATIVE); PROTEIN,URINE NEGATIVE (NEGATIVE)
[2020-08-14 23:35] LABS: BASOPHILS # (AUTO) 0.1 10^3/uL (0.0-0.1); BASOPHILS % (AUTO) 1 % (0-10); EOSINOPHILS # (AUTO) 0.1 10^3/uL (0.0-0.3); EOSINOPHILS % (AUTO) 1 % (0-10); HEMATOCRIT 38 % (40-54); HEMOGLOBIN 13.1 g/dL (13.3-17.7); LYMPHOCYTES # (AUTO) 1.5 10^3/uL (1.0-4.0); LYMPHOCYTES % (AUTO) 15 % (12-44); MEAN CORPUSCULAR HEMOGLOBIN 32 pg (25-34); MEAN CORPUSCULAR HGB CONC 35 g/dL (32-36); MEAN CORPUSCULAR VOLUME 93 fL (80-99); MEAN PLATELET VOLUME 12.5 fL (9.0-12.2); MONOCYTES # (AUTO) 0.9 10^3/uL (0.0-1.0); MONOCYTES % (AUTO) 9 % (0-12); NEUTROPHILS # (AUTO) 7.5 10^3/uL (1.8-7.8); NEUTROPHILS % (AUTO) 74 % (42-75); PLATELET COUNT 203 10^3/uL (130-400); WHITE BLOOD COUNT 10.2 10^3/uL (4.3-11.0)
[2020-08-14 23:35] LABS: BACTERIA,URINE NEGATIVE /HPF
[2020-08-14 23:37] LABS: AMPHETAMINE SCREEN, URINE NEGATIVE (NEGATIVE); BENZODIAZEPINES SCREEN URINE NEGATIVE (NEGATIVE); COCAINE SCREEN URINE NEGATIVE (NEGATIVE); METHAMPHETAMINE SCREEN URINE S NEGATIVE (NEGATIVE)
[2020-08-14 23:38] LABS: BARBITURATE SCREEN URINE NEGATIVE (NEGATIVE); CANNABINOID SCREEN, URINE POSITIVE (NEGATIVE); METHADONE STAT NEGATIVE (NEGATIVE); OPIATE SCREEN URINE POSITIVE (NEGATIVE); OXYCODONE STAT NEGATIVE (NEGATIVE); PROPOXYPHENE STAT NEGATIVE (NEGATIVE); TRICYCLIC ANTIDEPRESSANTS SCRE NEGATIVE (NEGATIVE)
--- NOTE | 2020-08-14 23:38 | ED Back Pain ---
General Stated Complaint: FALL/BACK PAIN Source of Information: Patient History of Present Illness Date Seen by Provider: Aug 14, 2020 Time Seen by Provider: 23:10 Initial Comments PT ARRIVES VIA POV FROM HOME PT STATES HE WAS WORKING OUTSIDE AT HOME ON Saturday08/10/20 (), WAS ON A LADDER, AND MISSED THE LAST 1 OR 2 STEPS, AND FELL BACKWARDS, LANDING ON THE RIM OF A WHEELBARROW--HITTING HIS BACK ON THE WHEELBARROW. PAIN IS MOSTLY ON HIS RIGHT SIDE--RIGHT FLANK, RIGHT LOWER BACK AND RIGHT POSTERIOR RIBS NO CHEST PAIN OR SHORTNESS OF BREATH NO PARESTHESIAS OR MOTOR DEFICITS NO LEG OR HIP PAIN NO PROBLEMS URINATING OR HAVING BOWEL MOVEMENT NO HEMATURIA NO DIZZINESS NO HEAD OR NECK INJURY NO LOSS OF CONSCIOUSNESS NO ABDOMINAL PAIN NO NAUSEA/VOMITING/DIARRHEA/CONSTIPATION TOOK 2 TRAMADOL ( FRIEND'S MEDICATION) TODAY AT 1300, OTHERWISE HAS NOT TAKEN ANYTHING ELSE FOR PAIN AT ANY TIME HAS NOT APPLIED ICE OR HEAT STATES PAIN IS A DULL CONSTANT PAIN, THEN IS SHARP WITH CERTAIN MOVEMENTS HAS NOT SOUGHT CARE UNTIL TONIGHT. HAS HAS INCREASE IN PAIN THE LAST 2 DAYS. NO HISTORY OF BACK INJURIES OR CHRONIC BACK PAIN Other Comments PCP: NONE Allergies and Home Medications Allergies Coded Allergies: No Known Drug Allergies (Unverified , 03/13/11) Home Medications Cyclobenzaprine HCl 10 Mg Tablet, 10 MG PO Q8H PRN for SPASMS Prescribed by: TYLER LIM on 08/15/2054 Methylprednisolone 4 Mg Tab.ds.pk, 4 MG PO UD Prescribed by: TYLER LIM on 06/01/19 0910 Naproxen 500 Mg Tablet.dr, 500 MG PO BID Prescribed by: TYLER LIM on 08/15/2054 Patient Home Medication List Home Medication List Reviewed: Yes Review of Systems Constitutional: no symptoms reported EENTM: no symptoms reported Respiratory: no symptoms reported Cardiovascular: no symptoms reported Gastrointestinal: no symptoms reported Genitourinary: no symptoms reported Musculoskeletal: see HPI, back pain Skin: no symptoms reported Psychiatric/Neurological: No Symptoms Reported Past Xgcelmx-Woigmc-Erumzx Hx Patient Social History Alcohol Use: Regular Use (DRINKS HEAVILY 3-4 TIMES A WEEK--BEER + HARD LIQUOR- AT LEAST 6 DRINKS / A DAY) Alcohol Beverage of Choice: Beer Recreational Drug Use: Yes (THC) Drug of Choice: THC Smoking Status: Current Everyday Smoker (CHEWS) Type Used: Smokeless Tobacco 2nd Hand Smoke Exposure: No Recent Hopitalizations: No Seasonal Allergies Seasonal Allergies: No Past Medical History Surgeries: No Respiratory: No Cardiac: Yes Hypertension Neurological: No Genitourinary: No Gastrointestinal: No Musculoskeletal: No Endocrine: No HEENT: No Cancer: No Psychosocial: No Integumentary: No Blood Disorders: No Physical Exam Vital Signs Vital Signs - First Documented 08/14/20 23:04 Temp 36.9 Pulse 89 Resp 18 B/P (MAP) 107/87 (94) Pulse Ox 100 O2 Delivery Room Air Capillary Refill : Height, Weight, BMI Height: 6'0.00" Weight: 185lbs. 0.0oz. 83.387163gp; 24.00 BMI Method:Stated General Appearance: No Apparent Distress, WD/WN, Thin, Other (WALKS UPRIGHT AND MOVES QUICKLY WITHOUT DIFFICULTY) HEENT: PERRL/EOMI, Other (WEARS GLASSES) Neck: Full Range of Motion, Normal Inspection, Non Tender, Supple Cardiovascular: Regular Rate, Rhythm, No Edema, No JVD, No Murmur, Normal Peripheral Pulses Respiratory: Normal Breath Sounds, No Accessory Muscle Use, No Respiratory Distress Gastrointestinal: Normal Bowel Sounds, No Organomegaly, No Pulsatile Mass, Non Tender, Soft Back: CVA Tenderness (R), Other (TENDERNESS TO RIGHT POSTERIOR RIB AREA, RIGHT FLANK TENDERNESS, DOWN TO RIGHT SI JOINT AND RIGHT ILIAC CREST TENDERNESS. NO CREPITANCE OR SUB Q AIR. NO EXTERNAL EVIDENCE OF TRAUMA. ) Extremity: Normal Capillary Refill, Normal Inspection, Normal Range of Motion, Non Tender, No Calf Tenderness, No Pedal Edema Neurologic/Psychiatric: Alert, Oriented x3, No Motor/Sensory Deficits, Normal Mood/Affect, fish and wildlife warden II-XII Norm as Tested; No Abnormal Cerebellar Tests Skin: Normal Color, Warm/Dry, Tattoos/Piercings (EXTENSIVE TATTOOS OVER MOST OF BODY) Progress/Results/Core Measures Results/Orders Lab Results Laboratory Tests Test 08/14/20 23:14 08/14/20 23:28 Range/Units Urine Color YELLOW Urine Clarity SL CLOUDY Urine pH 6.0 5-9 Urine Specific [place] >=1.030 1.016-1.022 Urine Protein NEGATIVE NEGATIVE Urine Glucose (UA) NEGATIVE NEGATIVE Urine Ketones TRACE H NEGATIVE Urine Nitrite NEGATIVE NEGATIVE Urine Bilirubin NEGATIVE NEGATIVE Urine Urobilinogen 0.2 < = 1.0 MG/DL Urine Leukocyte Esterase NEGATIVE NEGATIVE Urine RBC (Auto) NEGATIVE NEGATIVE Urine RBC NONE /HPF Urine WBC NONE /HPF Urine Squamous Epithelial Cells 2-5 /HPF Urine Crystals NONE /LPF Urine Bacteria NEGATIVE /HPF Urine Casts NONE /LPF Urine Mucus MODERATE H /LPF Urine Culture Indicated NO Urine Opiates Screen POSITIVE H NEGATIVE Urine Oxycodone Screen NEGATIVE NEGATIVE Urine Methadone Screen NEGATIVE NEGATIVE Urine Propoxyphene Screen NEGATIVE NEGATIVE Urine Barbiturates Screen NEGATIVE NEGATIVE Ur Tricyclic Antidepressants Screen NEGATIVE NEGATIVE Urine Phencyclidine Screen NEGATIVE NEGATIVE Urine Amphetamines Screen NEGATIVE NEGATIVE Urine Methamphetamines Screen NEGATIVE NEGATIVE Urine Benzodiazepines Screen NEGATIVE NEGATIVE Urine Cocaine Screen NEGATIVE NEGATIVE Urine Cannabinoids Screen POSITIVE H NEGATIVE White Blood Count 10.2 4.3-11.0 10^3/uL Red Blood Count 4.08 L 4.30-5.52 10^6/uL Hemoglobin 13.1 L 13.3-17.7 g/dL Hematocrit 38 L 40-54 % Mean Corpuscular Volume 93 80-99 fL Mean Corpuscular Hemoglobin 32 25-34 pg Mean Corpuscular Hemoglobin Concent 35 32-36 g/dL Red Cell Distribution Width 12.4 10.0-14.5 % Platelet Count 203 130-400 10^3/uL Mean Platelet Volume 12.5 H 9.0-12.2 fL Immature Granulocyte % (Auto) 1 % Neutrophils (%) (Auto) 74 42-75 % Lymphocytes (%) (Auto) 15 12-44 % Monocytes (%) (Auto) 9 0-12 % Eosinophils (%) (Auto) 1 0-10 % Basophils (%) (Auto) 1 0-10 % Neutrophils # (Auto) 7.5 1.8-7.8 10^3/uL Lymphocytes # (Auto) 1.5 1.0-4.0 10^3/uL Monocytes # (Auto) 0.9 0.0-1.0 10^3/uL Eosinophils # (Auto) 0.1 0.0-0.3 10^3/uL Basophils # (Auto) 0.1 0.0-0.1 10^3/uL Immature Granulocyte # (Auto) 0.1 0.0-0.1 10^3/uL Prothrombin Time 12.4 12.2-14.7 SEC INR Comment 0.9 0.8-1.4 Activated Partial Thromboplast Time 37 H 24-35 SEC Sodium Level 138 135-145 MMOL/L Potassium Level 3.2 L 3.6-5.0 MMOL/L Chloride Level 97 L 98-107 MMOL/L Carbon Dioxide Level 26 21-32 MMOL/L Anion Gap 15 H 5-14 MMOL/L Blood Urea Nitrogen 12 7-18 MG/DL Creatinine 0.79 0.60-1.30 MG/DL Estimat Glomerular Filtration Rate > 60 BUN/Creatinine Ratio 15 Glucose Level 125 H 70-105 MG/DL Calcium Level 9.1 8.5-10.1 MG/DL Corrected Calcium 9.1 8.5-10.1 MG/DL Total Bilirubin 0.2 0.1-1.0 MG/DL Aspartate Amino Transf (AST/SGOT) 57 H 5-34 U/L Alanine Aminotransferase (ALT/SGPT) 46 0-55 U/L Alkaline Phosphatase 102 40-136 U/L Total Protein 7.0 6.4-8.2 GM/DL Albumin 4.0 3.2-4.5 GM/DL Amylase Level 37 25-125 U/L Lipase 20 8-78 U/L Serum Alcohol 66 H <10 MG/DL My Orders Orders - TYLER LIM DO Drug Screen Stat (Urine) (08/14/20 23:13) Ua Culture If Indicated (08/14/20 23:13) Ct Thoracic/Lumbar Spine Wo (08/14/20 23:13) Ed Iv/Invasive Line Start (08/14/20 23:20) Ct Chest/Abdomen/Pelvis W (08/14/20 23:20) Alcohol (08/14/20 23:20) Amylase (08/14/20 23:20) Cbc With Automated Diff (08/14/20 23:20) Comprehensive Metabolic Panel (08/14/20 23:20) Lipase (08/14/20 23:20) Protime With Inr (08/14/20 23:20) Partial Thromboplastin Time (08/14/20 23:20) Iohexol Injection (Omnipaque 350 Mg/Ml 1 (08/15/20 00:15) Received Contrast (Hold Metformin- Contr (08/15/20 00:15) Ns (Ivpb) (Sodium Chloride 0.9% Ivpb Bag (08/15/20 00:15) Rx-Cyclobenzaprine Tablet (Rx-Flexeril T (08/15/20 00:53) Rx-Naproxen (Rx-Naprosyn) (08/15/20 00:53) Medications Given in ED Current Medications Medications Dose Ordered Sig/Seth Route Start Time Stop Time Status Last Admin Dose Admin Iohexol 100 ml ONCE ONCE IV 08/15/20 00:15 08/15/20 00:20 DC 08/15/20 00:15 100 ML Sodium Chloride 80 ml ONCE ONCE IV 08/15/20 00:15 08/15/20 00:20 DC 08/15/20 00:15 80 ML Vital Signs/I&O 08/14/20 08/14/20 23:04 23:04 Temp 36.9 36.9 Pulse 89 89 Resp 18 18 B/P (MAP) 107/87 (94) 107/87 (94) Pulse Ox 100 100 O2 Delivery Room Air Progress Progress Note : Progress Note SLEPT THROUGH MOST OF ER STAY Diagnostic Imaging Comments CT THORACIC/LUMBAR SPINE--NO ACUTE PROCESS, PER [facility] VIA FAX AT 0026 CT CHEST/ABDOMEN/PELVIS--NO ACUTE PROCESS, PER [facility] VIA FAX AT 0053 Reviewed: Reviewed by Me Departure Impression Primary Impression: Back contusion Disposition: 01 HOME, SELF-CARE Condition: Stable Departure-Patient Inst. Referrals: NO,LOCAL PHYSICIAN (PCP/Family) Primary Care Physician Patient Instructions: Contusion (DC) Add. Discharge Instructions: ALTERNATE ICE AND HEAT TO SORE AREAS AT 20 MINUTE INTERVALS ACTIVITIES TOLERATED FOLLOW UP WITH YOUR DR IN 1 WEEK IF NO BETTER Scripts Naproxen (Naproxen) 500 Mg Tablet. 500 MG PO BID, #20 TAB Prov: TYLER LIM DO 08/15/20 Cyclobenzaprine HCl (Cyclobenzaprine HCl) 10 Mg Tablet 10 MG PO Q8H PRN for SPASMS, #15 TAB 0 Refills Prov: TYLER LIM DO 08/15/20 TYLER LIM DO Aug 14, 2020 23:38
[2020-08-14 23:49] LABS: AMYLASE 37 U/L (25-125); CHLORIDE 97 MMOL/L (98-107); INR 0.9 (0.8-1.4); POTASSIUM 3.2 MMOL/L (3.6-5.0); PROTHROMBIN TIME PATIENT 12.4 SEC (12.2-14.7); SODIUM 138 MMOL/L (135-145)
[2020-08-14 23:50] LABS: CALCIUM 9.1 MG/DL (8.5-10.1)
[2020-08-14 23:51] LABS: GLUCOSE 125 MG/DL (70-105)
[2020-08-14 23:52] LABS: CARBON DIOXIDE 26 MMOL/L (21-32)
[2020-08-14 23:53] LABS: BILIRUBIN,TOTAL 0.2 MG/DL (0.1-1.0)
[2020-08-14 23:55] LABS: ALKALINE PHOSPHATASE 102 U/L (40-136); CREATININE SERUM 0.79 MG/DL (0.60-1.30); GFR ESTIMATED > 60
[2020-08-14 23:56] LABS: BUN/CREATININE RATIO 15
[2020-08-14 23:58] LABS: ALANINE AMINOTRANSFERASE 46 U/L (0-55); LIPASE 20 U/L (8-78)
[2020-08-15] MEDS ORDERED: IOHEXOL 350 MG/ML 100 ML (OMNIPAQUE 350) VIAL IV ONE (00:15)
[2020-08-15] MEDS ORDERED: HOLD METFORMIN - RECEIVED CONTRAST 20 ML VIAL IV SCH (00:15)
[2020-08-15] MEDS ORDERED: NS 100 ML (IVPB) BAG IV ONE (00:15)
[2020-08-15] MEDS ORDERED: RX-CYCLOBENZAPRINE 10 MG (FLEXERIL) TAB PPK#3 PO STA (00:53)
[2020-08-15] MEDS ORDERED: RX-NAPROXEN (NAPROSYN) 250 MG TAB PPK#4 PO STA (00:53)
[2020-08-15] MEDS ORDERED: NAPR500T8 PO (00:55)
[2020-08-15] MEDS ORDERED: CYCL10TA9 PO (00:55)
[2020-08-15 00:58] VITALS: BP 132/94
--- NOTE | 2020-08-15 06:37 | Diagnostic Imaging Report ---
PROCEDURE: CT chest, abdomen, and pelvis with contrast. TECHNIQUE: Multiple contiguous axial images were obtained through the chest, abdomen, and pelvis after the administration of intravenous contrast. Auto Exposure Controls were utilized during the CT exam to meet ALARA standards for radiation dose reduction. INDICATION: Fall with pain in the chest and back regions. CT CHEST: There may be a small amount of right pleural fluid. Otherwise the lungs are clear. There is no evidence of pericardial fluid. No mediastinal hematoma is identified. Great vessels in the thorax are unremarkable. No fracture is seen. IMPRESSION: Small amount of right pleural fluid and/or thickening without other evidence of acute abnormality seen in the thorax. CT ABDOMEN AND PELVIS: There is no evidence of hepatic or splenic abnormality. No gallbladder, pancreatic or adrenal gland abnormality seen. Kidneys are unremarkable. There is no evidence of free fluid within the abdomen or pelvis. Partially opacified urinary bladder is unremarkable. There is mild left convexity curvature of the spine centered at the thoracolumbar junction which is mildly increased compared to previous study. IMPRESSION: No acute abnormality is identified in the abdomen or pelvis. Mild left convexity curvature of the spine centered at the thoracolumbar junction may be on the basis of muscle spasm and clinical correlation would be of use. Dictated by: Dictated on workstation # [id number]
--- NOTE | 2020-08-15 06:44 | Diagnostic Imaging Report ---
PROCEDURE: CT thoracic and lumbar spine without contrast. TECHNIQUE: Multiple contiguous axial images were obtained through the thoracic and lumbar spine without the use of intravenous contrast. Sagittal and coronal reformations were then performed. All CT scans use one or more of the following dose optimizing techniques: automated exposure control, MA and/or KvP adjustment based on a patient size and exam type, or iterative reconstruction. INDICATION: Fall with back pain. Thoracic and lumbar spinal curvature and alignment are unremarkable. There is no evidence of fracture. No paraspinous hematoma is identified. IMPRESSION: No CT evidence of acute thoracic or lumbar spinal abnormality. Dictated by: Dictated on workstation # [id number]
== END 2020-08-15 01:06 | disposition home or self-care (01) ==
LOC: EDUNIT# 22:53 → ER 22:55
DX: S30.0XXA Contusion of lower back and pelvis, initial encounter (principal); F17.290 Nicotine dependence, other tobacco product, uncomplicated; Z79.52 Long term (current) use of systemic steroids; W11.XXXA Fall on and from ladder, initial encounter
CPT/HCPCS: 71260; 72128; 72131; 74177; 80053; 80306; 81000; 82150; 83690; 85025; 85610; 85730; 99284; G0480; 36415; 80320

== ENCOUNTER 2021-06-25 12:24 | Emergency (ER) | payer SELFPAY ==
[~2021-06-25] VITALS: Ht 182 cm; Wt 81.6 kg
[~2021-06-25 12:24] MED LIST changes: +CYCL10TA9 PO; +NAPR500T8 PO
[2021-06-25 12:46] VITALS: BP 155/103
[2021-06-25] MEDS ORDERED: BSS 15 ML IR ONE (13:00)
[2021-06-25] MEDS ORDERED: FLUORESCEIN (FLUOR-I-STRIPS) 1 MG STRP OU ONE (13:00)
[2021-06-25] MEDS ORDERED: TETRACAINE 0.5% OPHTH SOLN 4 ML BTL (SINGLE DOSE ONLY) OU ONE (13:00)
--- NOTE | 2021-06-25 13:11 | ED EENT ---
History of Present Illness General Chief Complaint: Eye Problems Stated Complaint: R EYE RED/SWOLLEN Nursing Triage Note: Pt ambulatory to triage. Pt reports on Sat evening got a splash of hot sauce in his R eye, reports did not take his contacts out. Pt attempted to remove contact today, unsure if contact is still in, reports pain and blurred vision. Source: patient Exam Limitations: no limitations History of Present Illness Date Seen by Provider: Jun 25, 2021 Time Seen by Provider: 13:08 Initial Comments To ER with right eye irritation. He got a splash of hot sauce in it while wearing his contact lens on Saturday. Saturday he took the contact lens out but has ongoing redness. He follows with Dr. ABDI from optometry and intends to call him tomorrow morning for follow-up. Timing/Duration: abrupt Severity: moderate Location: eye (R) Associated Symptoms: denies symptoms Allergies and Home Medications Allergies Coded Allergies: No Known Drug Allergies (Unverified , 08/15/20) Patient Home Medication List Home Medication List Reviewed: Yes Cyclobenzaprine HCl (Cyclobenzaprine HCl) 10 Mg Tablet, 10 MG PO Q8H PRN for SPASMS Prescribed by: TYLER LIM on 08/15/20 0055 Methylprednisolone (Medrol) 4 Mg Tab.ds.pk, 4 MG PO UD Prescribed by: TYLER LIM on 06/01/19 0910 Naproxen (Naproxen) 500 Mg Tablet.dr, 500 MG PO BID Prescribed by: TYLER LIM on 08/15/20 0055 Review of Systems Review of Systems Constitutional: see HPI Eyes: See HPI Ears: No Symptoms Reported Nose: no symptoms reported Mouth: no symptoms reported Throat: no symptoms reported Respiratory: no symptoms reported Cardiovascular: no symptoms reported Musculoskeletal: no symptoms reported Past Ispmrui-Wciaso-Wjnnwb Hx Patient Social History Tobacco Use?: Yes Substance use?: Yes Substance type: Marijuana Alcohol Use?: Yes Pt feels they are or have been: No Immunizations Up To Date Tetanus Booster (TDap): Unknown PED Vaccines UTD: Yes Seasonal Allergies Seasonal Allergies: No Past Medical History Surgeries: No Respiratory: No Cardiac: Yes Hypertension Neurological: No Genitourinary: No Gastrointestinal: No Musculoskeletal: No Endocrine: No HEENT: No Cancer: No Psychosocial: No Integumentary: No Blood Disorders: No Physical Exam Vital Signs Vital Signs - First Documented 06/25/21 12:46 Temp 36.6 Pulse 97 Resp 20 B/P (MAP) 155/103 (120) Pulse Ox 100 O2 Delivery Room Air Height, Weight, BMI Height: 6'0.00" Weight: 185lbs. 0.0oz. 83.845985hl; 24.00 BMI Method:Stated General Appearance: WD/WN, no apparent distress Eyes: right eye other (There is conjunctivitis involving both the bulbar and palpebral conjunctive a. I did anesthetize the eye with a few drops of tetracaine which did not make a meaningful improvement in his pain. Light makes this worse, he likely has an iritis from rubbing the eye. I do not see any foreign body in the cornea nor is there any area of fluorescein dye uptake to suggest a corneal abrasion or ulceration. There is no retained contact lens. ); left eye normal inspection, left eye PERRL, left eye EOMI Mouth/Throat: normal mouth inspection, pharynx normal Neck: non-tender, full range of motion Respiratory: no respiratory distress, no accessory muscle use Gastrointestinal: normal bowel sounds, non tender, soft Neurologic/Psychiatric: alert, normal mood/affect, oriented x 3 Skin: normal color, warm/dry Progress/Results/Core Measures Results/Orders My Orders Orders - LISA CORONADO APRN Tetracaine 0.5% Ophth Magy Sdv (Tetracai (06/25/21 13:00) Fluorescein Strips ([id number]) (06/25/21 13:00) Balanced Salt Irrigation Soln (Bss Irrig (06/25/21 13:00) Vital Signs/I&O 06/25/21 12:46 Temp 36.6 Pulse 97 Resp 20 B/P (MAP) 155/103 (120) Pulse Ox 100 O2 Delivery Room Air Blood Pressure Mean: 120 Departure Impression Primary Impression: Conjunctivitis Disposition: 01 HOME, SELF-CARE Condition: Stable Departure-Patient Inst. Decision time for Depature: 13:10 Referrals: DARELL ABDI OD NO,LOCAL PHYSICIAN (PCP) Primary Care Physician Patient Instructions: Conjunctivitis ([place]) (DC) Add. Discharge Instructions: 1. Return to ER for any concerns 2. Follow-up with your doctor next week 3. Use the eyedrops 2 drops every 2 hours for the next [address] Abdi tomorrow to make an appointment to be seen for follow-up. All discharge instructions reviewed with patient and/or family. Voiced understanding. Copy Copies To 1: DARELL ABDI OD, PETER J APRN Jun 25, 2021 13:11
[2021-06-25] MEDS ORDERED: GENTAMICIN 0.3% OPHTH SOLN 5 ML OP SCH (13:15)
== END 2021-06-25 13:13 | disposition home or self-care (01) ==
LOC: EDUNIT# 12:24 → ER 12:26
DX: H10.9 Unspecified conjunctivitis (principal); I10 Essential (primary) hypertension; Z72.0 Tobacco use
CPT/HCPCS: 99281

== ENCOUNTER 2022-10-19 03:00 | Emergency (ER) | payer SELFPAY ==
[~2022-10-19] VITALS: Ht 182.9 cm; Wt 84.0 kg
[~2022-10-19 03:00] MED LIST changes: +CYCL10TA25 PO; -CYCL10TA9 PO
[2022-10-19] MEDS ORDERED: KETOROLAC 30 MG/ML VIAL IVP STA (03:15)
[2022-10-19 03:20] VITALS: BP 142/105
--- NOTE | 2022-10-19 03:21 | ED Lower Extremity ---
General Stated Complaint: POSS SPIDER BITE,RT FOOT SWOLLEN,RED,SHOOTING PAIN Source: patient History of Present Illness Date Seen by Provider: Oct 19, 2022 Time Seen by Provider: 03:10 Initial Comments PT ARRIVES VIA POV FROM HOME C/O PAIN, REDNESS AND SWELLING TO RIGHT FIRST MTP JOINT AREA NOTICED IT EARLIER TODAY NO KNOWN INJURY NO PARESTHESIAS OR MOTOR DEFICITS NO HISTORY OF SIMILAR PT TOOK TYLENOL AROUND 1400 THIS AFTERNOON HAS NOT TAKEN ANYTHING ELSE FOR PAIN PT DENIES ANY MEDICAL PROBLEMS, BUT DOES NOT GO TO ANY DOCTOR PT CHEWS TOBACCO, DAILY ETOH USE--UP TO 35 BEERS/DAY, THC USE. PT STATES HE IS CURRENTLY UNDER "HOUSE ARREST" PCP: NONE Allergies and Home Medications Allergies Coded Allergies: No Known Drug Allergies (Unverified , 08/15/20) Patient Home Medication List Home Medication List Reviewed: Yes Colchicine (Colchicine) 0.6 Mg Tablet, 0.6 MG PO UD Prescribed by: TYLER LIM on 10/19/22424 Last Action: New Order Cyclobenzaprine HCl (Cyclobenzaprine HCl) 10 Mg Tablet, 10 MG PO Q8H PRN for SPASMS Prescribed by: TYLER LIM on 08/15/2054 Indomethacin (Indomethacin) 50 Mg Capsule, 50 MG PO TID Prescribed by: TYLER LIM on 10/19/22424 Last Action: New Order Methylprednisolone (Medrol) 4 Mg Tab.ds.pk, 4 MG PO UD Prescribed by: TYLER LIM on 06/01/19909 Naproxen (Naproxen) 500 Mg Tablet.dr, 500 MG PO BID Prescribed by: TYLER LIM on 08/15/2054 Review of Systems Constitutional: no symptoms reported Musculoskeletal: see HPI Skin: see HPI Psychiatric/Neurological: No Symptoms Reported Past Qnkpdvi-Eszrvu-Ejibwf Hx Patient Social History Tobacco Use?: No Smoking Status: Never a Smoker Smokeless Tobacco Frequency: Current Everyday User Use of E-Cig and/or Vaping dev: No Substance use?: Yes Substance type: Marijuana Alcohol Use?: Yes Alcohol type: Beer Alcohol Frequency: Daily Immunizations Up To Date Tetanus Booster (TDap): Unknown PED Vaccines UTD: Yes Seasonal Allergies Seasonal Allergies: No Past Medical History Surgeries: No Respiratory: No Cardiac: Yes (NO MEDICATIONS) Hypertension Neurological: No Genitourinary: No Gastrointestinal: Yes (SPLENIC LACERATION 06/2018--UNKNOWN CAUSE, NO SURGERY) Musculoskeletal: No Endocrine: No HEENT: No Cancer: No Psychosocial: No Integumentary: No Blood Disorders: No Family Medical History SOCIAL HISTORY: -CHEWS TOBACCO, DENIES SMOKING -DRUGS--MARIJUANA USE -ETOH--UP TO 35 BEERS/DAY Physical Exam Vital Signs Vital Signs - First Documented 10/19/22 03:20 Temp 36.1 Pulse 92 Resp 16 B/P (MAP) 142/105 (117) Capillary Refill : Height, Weight, BMI Height: 6'0.00" Weight: 185lbs. 0.0oz. 83.110024qm; 24.00 BMI Method:Stated General Appearance: WD/WN, no apparent distress Ankles: right ankle normal inspection Feet: left foot normal inspection; right foot other (RIGHT FOOT--FIRST MTP JOINT, ERYTHEMATOUS, SWOLLEN, WARM, TENDER. LIMITED ROM AT JOINT DUE TO PAIN. DISTAL SENSORY AND VASCULAR INTACT. NO SIGNS OF TRAUMA--NO BRUISING OR ABRASIONS, ETC. ) Neurologic/Tendon: normal sensation Neurologic/Psychiatric: no motor/sensory deficits, alert, normal mood/affect, oriented x 3 Skin: normal color, warm/dry, tattoos/piercings (EXTENSIVE TATTOOS) Progress/Results/Core Measures Results/Orders Lab Results Laboratory Tests Test 10/19/22 03:20 Range/Units White Blood Count 9.3 4.3-11.0 10^3/uL Red Blood Count 3.95 L 4.30-5.52 10^6/uL Hemoglobin 13.0 L 13.3-17.7 g/dL Hematocrit 37 L 40-54 % Mean Corpuscular Volume 94 80-99 fL Mean Corpuscular Hemoglobin 33 25-34 pg Mean Corpuscular Hemoglobin Concent 35 32-36 g/dL Red Cell Distribution Width 12.8 10.0-14.5 % Platelet Count 206 130-400 10^3/uL Mean Platelet Volume 12.4 H 9.0-12.2 fL Immature Granulocyte % (Auto) 0 % Neutrophils (%) (Auto) 61 42-75 % Lymphocytes (%) (Auto) 26 12-44 % Monocytes (%) (Auto) 9 0-12 % Eosinophils (%) (Auto) 2 0-10 % Basophils (%) (Auto) 1 0-10 % Neutrophils # (Auto) 5.7 1.8-7.8 10^3/uL Lymphocytes # (Auto) 2.4 1.0-4.0 10^3/uL Monocytes # (Auto) 0.9 0.0-1.0 10^3/uL Eosinophils # (Auto) 0.2 0.0-0.3 10^3/uL Basophils # (Auto) 0.1 0.0-0.1 10^3/uL Immature Granulocyte # (Auto) 0.0 0.0-0.1 10^3/uL Erythrocyte Sedimentation Rate 2 0-15 MM/HR Sodium Level 137 135-145 MMOL/L Potassium Level 3.8 3.6-5.0 MMOL/L Chloride Level 103 98-107 MMOL/L Carbon Dioxide Level 22 21-32 MMOL/L Anion Gap 12 5-14 MMOL/L Blood Urea Nitrogen 10 7-18 MG/DL Creatinine 1.02 0.60-1.30 MG/DL Estimat Glomerular Filtration Rate 98 BUN/Creatinine Ratio 10 Glucose Level 87 70-105 MG/DL Uric Acid 10.3 H 2.6-7.2 MG/DL Calcium Level 9.6 8.5-10.1 MG/DL Corrected Calcium 9.4 8.5-10.1 MG/DL Total Bilirubin 0.4 0.1-1.0 MG/DL Aspartate Amino Transf (AST/SGOT) 37 H 5-34 U/L Alanine Aminotransferase (ALT/SGPT) 42 0-55 U/L Alkaline Phosphatase 102 40-136 U/L C-Reactive Protein High Sensitivity 0.15 0.00-0.50 MG/DL Total Protein 7.0 6.4-8.2 GM/DL Albumin 4.2 3.2-4.5 GM/DL My Orders Orders - TYLER LIM DO Ed Iv/Invasive Line Start (10/19/22 03:15) Cbc With Automated Diff (10/19/22 03:15) Comprehensive Metabolic Panel (10/19/22 03:15) Hs C Reactive Protein (10/19/22 03:15) Erythrocyte Sedimentation Rate (10/19/22 03:15) Foot, Right, 3 View (10/19/22 03:15) Ketorolac Injection (Toradol Injection) (10/19/22 03:15) Ed Iv/Invasive Line Start (10/19/22 03:15) Uric Acid (10/19/22 03:15) Vital Signs/I&O 10/19/22 03:20 Temp 36.1 Pulse 92 Resp 16 B/P (MAP) 142/105 (117) Progress Progress Note : Progress Note GIVEN IV FLUIDS AND TORADOL Departure Impression Primary Impression: Gout attack Additional Impressions: Gout involving toe of right foot Alcohol use Disposition: 01 HOME, SELF-CARE Condition: Stable Departure-Patient Inst. Decision time for Depature: 04:17 Referrals: NO,LOCAL PHYSICIAN (PCP/Family) Primary Care Physician Patient Instructions: Gout ED, Low Purine Diet, Lifestyle Changes to Manage Gout, Alcohol Use Disorder ED Add. Discharge Instructions: SOAK IN WARM EPSOM SALTS 2-3 TIMES A DAY, THEN APPLY ICE PACKS TO AREA AT 20 MINUTE INTERVALS LOTS OF WATER NO ALCOHOL LOW PURINE DIET FOLLOW UP WITH OF DIAN FOR FURTHER CARE--CALL IN THE MORNING TO MAKE AN APPOINTMENT. LIST OF LOCAL PROVIDERS IS INCLUDED Scripts Indomethacin (Indomethacin) 50 Mg Capsule 50 MG PO TID, #20 CAP Prov: TYLER LIM DO 10/19/22 Colchicine (Colchicine) 0.6 Mg Tablet 0.6 MG PO UD, #6 TAB 1.2 MG AT ONSET OF GOUT FLARE, THEN MAY TAKE 0.6 MG BID Prov: TYLER LIM DO 10/19/22 TYLER LIM DO Oct 19, 2022 03:21
[2022-10-19 03:38] LABS: BASOPHILS # (AUTO) 0.1 10^3/uL (0.0-0.1); BASOPHILS % (AUTO) 1 % (0-10); EOSINOPHILS # (AUTO) 0.2 10^3/uL (0.0-0.3); EOSINOPHILS % (AUTO) 2 % (0-10); HEMATOCRIT 37 % (40-54); LYMPHOCYTES # (AUTO) 2.4 10^3/uL (1.0-4.0); LYMPHOCYTES % (AUTO) 26 % (12-44); MEAN CORPUSCULAR HEMOGLOBIN 33 pg (25-34); MEAN CORPUSCULAR HGB CONC 35 g/dL (32-36); MEAN CORPUSCULAR VOLUME 94 fL (80-99); MEAN PLATELET VOLUME 12.4 fL (9.0-12.2); MONOCYTES # (AUTO) 0.9 10^3/uL (0.0-1.0); MONOCYTES % (AUTO) 9 % (0-12); NEUTROPHILS # (AUTO) 5.7 10^3/uL (1.8-7.8); NEUTROPHILS % (AUTO) 61 % (42-75); PLATELET COUNT 206 10^3/uL (130-400); WHITE BLOOD COUNT 9.3 10^3/uL (4.3-11.0)
[2022-10-19 03:58] LABS: ALBUMIN 4.2 GM/DL (3.2-4.5); BILIRUBIN,TOTAL 0.4 MG/DL (0.1-1.0); CALCIUM 9.6 MG/DL (8.5-10.1); CREATININE SERUM 1.02 MG/DL (0.60-1.30); POTASSIUM 3.8 MMOL/L (3.6-5.0); URIC ACID 10.3 MG/DL (2.6-7.2)
[2022-10-19 04:13] LABS: ERYTHROCYTE SEDIMENTATION RATE 2 MM/HR (0-15)
[2022-10-19] MEDS ORDERED: INDO50CA82 PO ×2 (04:19→04:25)
[2022-10-19] MEDS ORDERED: COLC0.6T59 PO ×2 (04:19→04:25)
--- NOTE | 2022-10-19 05:48 | Diagnostic Imaging Report ---
Indication: Right foot pain 3 views of the right foot show no fracture, dislocation or other acute abnormalities. IMPRESSION: Negative right foot Dictated by: Dictated on workstation # [id number]
== END 2022-10-19 04:30 | disposition home or self-care (01) ==
LOC: EDUNIT# 03:00 → ER 03:03
DX: M10.9 Gout, unspecified (principal); F10.90 Alcohol use, unspecified, uncomplicated; F17.220 Nicotine dependence, chewing tobacco, uncomplicated; Z28.310 Unvaccinated for COVID-19
CPT/HCPCS: 36415; 73630; 80053; 84550; 85025; 85652; 86141; 99281